=== PATIENT | male | born 1965 | race American Indian/Alaskan Native ===

== ENCOUNTER 2019-12-11 09:04 | Emergency (ER) | payer SELFPAY ==
[2019-12-11] MEDS ORDERED: ONDANSETRON 4 MG/2 ML INJ IV ONE (13:26)
[2019-12-11] MEDS ORDERED: KETOROLAC 30 MG/1 ML INJ IV ONE (13:26)
[2019-12-11] MEDS ORDERED: oxyCODONE /ACETAMINOPHEN 5-325MG TAB PO ONE (13:26)
[2019-12-11] MEDS ORDERED: MORPHINE 4 MG/1 ML INJ IV ONE (13:26)
--- NOTE | 2019-12-11 13:31 | Emergency Department Report ---
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 Nguyen is a 54-year-old male with history of hypertension who presents with 1-1/2 weeks of severe left hip pain. Evaluated at [place] [facility]. Had x- rays performed. X-rays were unremarkable according to his report. No history of previous hip pain. Painn starts at the hip and radiates to the thigh causing severe spasm. The certain positions improve the pain. No history of trauma. No history of back pain. Was unable to do for ibuprofen or Tylenol prescribed to him at [facility] [place]. He has follow-up tomorrow at the primary care clinic. Complaint: leg injury, other (hip injury) -: week(s) (09/29) Injury: Hip: Left Type of Injury: unknown Severity: severe Severity scale (0 -10): 10 Improves With: other (Certain positions) Associated Symptoms: able to partially bear weight Treatments Prior to Arrival: other (Pain medication) - Related Data Allergies Allergy/AdvReac Type Severity Reaction Status Date / Time shellfish derived Allergy Rash Verified 12/11/19 09:08 ED Review of Systems ROS: Stated complaint: LLE PAIN Other details as noted in HPI Comment: All other systems reviewed and negative Constitutional: denies: fever, malaise Respiratory: denies: cough Cardiovascular: denies: chest pain ED Past Medical Hx - Past Medical History Previous Medical History?: Yes Hx Hypertension: Yes - Surgical History Past Surgical History?: Yes Additional Surgical History: Brain surgery - Social History Smoking Status: Current Every Day Smoker Substance Use Type: Alcohol ED Physical Exam - General Limitations: No Limitations General appearance: alert, in distress (Appears in severe pain) - Head Head exam: Present: atraumatic, normocephalic - Eye Eye exam: Present: normal appearance - ENT ENT exam: Present: mucous membranes moist - Neck Neck exam: Present: normal inspection, full ROM - Respiratory Respiratory exam: Present: normal lung sounds bilaterally. Absent: respiratory distress, wheezes, rales, rhonchi - Cardiovascular Cardiovascular Exam: Present: regular rate, normal rhythm, normal heart sounds. Absent: systolic murmur, diastolic murmur, rubs, gallop - GI/Abdominal GI/Abdominal exam: Present: soft, normal bowel sounds. Absent: distended, tenderness, guarding, rebound - Rectal Rectal exam: Present: deferred - Extremities Exam Extremities exam: Present: normal inspection, full ROM. Absent: tenderness, normal capillary refill, pedal edema, joint swelling, calf tenderness - Expanded Lower Extremity Exam Left Hip exam: Present: normal inspection, full ROM, tenderness. Absent: swelling, abrasion, laceration, deformity Upper Leg exam: Present: normal inspection, full ROM. Absent: tenderness Knee exam: Present: normal inspection, full ROM. Absent: tenderness, swelling, abrasion Lower Leg exam: Present: normal inspection, full ROM. Absent: tenderness, swelling Ankle exam: Present: normal inspection, full ROM. Absent: tenderness, swelling Foot/Toe exam: Present: normal inspection, full ROM. Absent: tenderness, swelling Neuro vascular tendon exam: Present: no vascular compromise. Absent: pulse deficit, abnormal cap refill, motor deficit, sensory deficit, extremity cold to touch, pallor, abnormal 2-point discrimination - Back Exam Back exam: Present: normal inspection - Neurological Exam Neurological exam: Present: alert, oriented X3 - Psychiatric Psychiatric exam: Present: normal affect, normal mood - Skin Skin exam: Present: warm, dry, intact, normal color. Absent: rash ED Course Vital Signs 12/11/19 12/11/19 13:30 15:16 Temperature 98.2 F Pulse Rate 88 86 Respiratory 21 17 Rate Blood Pressure 160/94 162/98 [Left] O2 Sat by Pulse 98 96 Oximetry ED Lower Extremity MDM - Medical Decision Making Mr. Nguyen presents with left hip pain differential diagnosis includes sciatica, hip strain, bursitis. Given IV and p.o. treatment in the emergency department for pain relief. Discharged home to follow-up tomorrow with his primary care clinic. Both extremities normal color. 2+ DP PT pulses bilaterally Critical care attestation.: If time is entered above; I have spent that time in minutes in the direct care of this critically ill patient, excluding procedure time. ED Disposition Clinical Impression: Left hip pain Disposition: DC-01 TO HOME OR SELFCARE Is pt being admited?: No Does the pt Need Aspirin: No Condition: Stable Referrals: PRIMARY CARE, [Primary Care Provider] - [facility]
[2019-12-11 17:05] VITALS: BP 158/88
== END 2019-12-11 17:06 | disposition home or self-care (01) ==
LOC: ED 09:04
DX: M25.552 Pain in left hip (principal); I10 Essential (primary) hypertension; F17.200 Nicotine dependence, unspecified, uncomplicated; Z98.890 Other specified postprocedural states; Z91.013 Allergy to seafood
CPT/HCPCS: 96374; 96375; 99283; J1885; J2270; J2405